=== PATIENT | female | born 1940 | race Caucasian/White ===

== ENCOUNTER 2019-04-12 15:50 | Outpatient (CLI) | payer BC, MEDICARE ==
[2019-04-12 16:16] LABS: BASOPHILS # (AUTO) 0.1 K/uL (0.0-8.0); BASOPHILS % (AUTO) 1.1 % (0.0-2.0); EOSINOPHILS # (AUTO) 0.2 K/uL (0.0-0.7); EOSINOPHILS % (AUTO) 4.1 % (0.0-7.0); HEMATOCRIT 37.2 % (31.2-41.9); HEMOGLOBIN 12.6 g/dL (10.9-14.3); LYMPHOCYTES # (AUTO) 1.3 K/uL (20.0-40.0); LYMPHOCYTES % (AUTO) 21.5 % (20.5-51.5); MEAN CORPUSCULAR HGB CONC 34 g/dL (32.3-35.6); MEAN CORPUSCULAR VOLUME 85.7 fL (75.5-95.3); MONOCYTES # (AUTO) 0.5 K/uL (2.0-10.0); MONOCYTES % (AUTO) 8.6 % (0.0-11.0); NEUTROPHILS # (AUTO) 3.8 K/uL (1.8-8.9); NEUTROPHILS % (AUTO) 64.7 % (38.5-71.5); PLATELET COUNT (AUTO) 209 K/uL (179-408); RED BLOOD CELL COUNT(AUTO) 4.35 MIL/uL (3.63-4.92); WHITE BLOOD COUNT (AUTO) 5.9 K/uL (3.8-11.8)
[2019-04-12 16:22] LABS: CREATININE 0.7 mg/dL (0.6-1.3); POTASSIUM 4.1 mmol/L (3.5-5.1)
[2019-04-12 16:37] LABS: BILIRUBIN,TOTAL 0.4 mg/dL (0.2-1.0); TOTAL PROTEIN, SERUM 7.9 g/dL (6.4-8.2)
== END 2019-04-12 23:59 | disposition home or self-care (01) ==
LOC: LAB 15:50
DX: E87.8 Other disorders of electrolyte and fluid balance, not elsewhere classified (principal)
CPT/HCPCS: 36415; 85025

== ENCOUNTER 2021-04-19 02:03 | Inpatient (IN) | payer BC, MEDICARE ==
[~2021-04-19] VITALS: Ht 152.4 cm; Wt 34.0 kg
--- NOTE | 2021-04-19 02:05 | NUR ---
pt bib ra 86 for c/o abd pain x 2 days.
--- NOTE | 2021-04-19 02:10 | NUR ---
Dr. Lai at bedside for MSE.
[2021-04-19] MEDS ORDERED: POTA10CA43 PO (02:22)
[2021-04-19] MEDS ORDERED: PANT40TA49 PO (02:22)
[2021-04-19] MEDS ORDERED: PRAV40TA3 PO (02:22)
[2021-04-19] MEDS ORDERED: CALC-343 PO (02:22)
[2021-04-19] MEDS ORDERED: FURO20TA4 PO (02:22)
[2021-04-19] MEDS ORDERED: MULT-1045 PO (02:22)
[2021-04-19] MEDS ORDERED: ONDANSETRON 4 MG/2 ML VIAL IV ONE (02:30)
[2021-04-19] MEDS ORDERED: IV NORMAL SALINE 1000 ML BAG IV ONE (02:30)
[2021-04-19] MEDS ORDERED: HYDROMORPHONE 1 MG/1 ML DISP.SYRIN IV ONE (02:30)
[2021-04-19] MEDS ORDERED: ONDANSETRON 4 MG/2 ML VIAL ONE (02:54)
[2021-04-19] MEDS ORDERED: HYDROMORPHONE 1 MG/1 ML DISP.SYRIN ONE (02:55)
[2021-04-19 02:56] LABS: PLATELET COUNT (AUTO) 164 K/uL (179-408)
[2021-04-19 02:59] LABS: CARBON DIOXIDE 24 mmol/L (21-32); CHLORIDE 107 mmol/L (98-107); GLUCOSE 75 mg/dL (74-106); POTASSIUM 3.3 mmol/L (3.5-5.1); UREA NITROGEN, BLOOD 25 mg/dL (7-18)
[2021-04-19 03:06] LABS: HEMATOCRIT 37.6 % (31.2-41.9); MEAN CORPUSCULAR HEMOGLOBIN 29.7 uug (24.7-32.8)
[2021-04-19 03:07] LABS: ALANINE AMINOTRANSFERASE 122 U/L (14-59); ALKALINE PHOSPHATASE 119 U/L (50-136); ASPARTATE AMINOTRANSFERASE 116 U/L (15-37); BILIRUBIN,DIRECT 0.4 mg/dL (0.0-0.2); BILIRUBIN,TOTAL 1.3 mg/dL (0.2-1.0); TOTAL PROTEIN, SERUM 7.4 g/dL (6.4-8.2)
[2021-04-19] MEDS ORDERED: IV 1/2NS 1000 ML 1,000 ML IV ONE (03:15)
[2021-04-19] MEDS ORDERED: IOHEXOL 300MG/ML 100 ML INFUS..BTL ONE (03:33)
[2021-04-19] MEDS ORDERED: SWABABLE VALVE TRANSFER SET EA MC ONE (03:33)
[2021-04-19] MEDS ORDERED: IV NORMAL SALINE 250 ML IV ONE (03:33)
--- NOTE | 2021-04-19 03:33 | NUR ---
pt taken to cat scan.
[2021-04-19] MEDS ORDERED: POTASSIUM CHLORIDE 50 ML IV ONE (03:45)
--- NOTE | 2021-04-19 04:20 | NUR ---
Dr. Lai in the room speaking with the pt.
[2021-04-19 04:48] LABS: LIPASE > 6000 U/L (73-393)
[2021-04-19] MEDS ORDERED: METRONIDAZOLE 500 MG/NS 100 ML PIGGYBACK IV ONE (05:15)
[2021-04-19] MEDS ORDERED: levoFLOXacin 750 MG/D5W 150 ML PIGGYBACK IV ONE (05:15)
[2021-04-19] MEDS ORDERED: levoFLOXacin 750MG/D5W 150 ML IV ONE (05:30)
--- NOTE | 2021-04-19 05:31 | NUR ---
Dr. Lai [facility] CLAIMS EXAMINER from [facility] doctor for admission.
--- NOTE | 2021-04-19 05:34 | NUR ---
pt aware she will be admitted to the hospital, Dr. Lai spoke with pt regarding the admission.
[2021-04-19] MEDS ORDERED: REMEDY ESSENTIAL ZINC PASTE 113 GM TP PRN (05:45)
[2021-04-19] MEDS ORDERED: ACETAMINOPHEN 325 MG TABLET PO PRN (05:45)
[2021-04-19] MEDS ORDERED: ONDANSETRON 4 MG/2 ML VIAL IV PRN (05:45)
[2021-04-19] MEDS ORDERED: MAGNESIUM HYDROXIDE 30 ML LIQUID UDC PO PRN (05:45)
--- NOTE | 2021-04-19 06:55 | NUR ---
Received pt. in bed sleeping intermittently, IV piggy back running. ON NSR with sbp of 113/53 hr of 73. c/of 5/10 abdominal pain, with no need of pain medication as stated by pt. "tolerable for me". Afebrile.
--- NOTE | 2021-04-19 07:04 | NUR ---
Report given to Kim FRANKLIN.
--- NOTE | 2021-04-19 07:15 | NUR ---
Patient with c/of back pain and requesting to have a different bed. pt informed that transfer as inpatient is in progress and that she'll get a more comfortable bed. warm blanket provided and at this time assisted to bathroom as well. Pending urine collected. Will continue with care plan.
--- NOTE | 2021-04-19 07:34 | NUR ---
A call to floor to give report as informed by community health nurse supervisor "nurses are still in the middle of report and they'll call when ready". awaiting call back.
[2021-04-19] MEDS ORDERED: METRONIDAZOLE 500 MG/NS 100ML 100 ML IV ONE (07:39)
[2021-04-19 07:42] LABS: *BILIRUBIN,URIN NEGATIVE (NEGATIVE); *CLARITY,URINE CLEAR (CLEAR); *COLOR,URINE YELLOW (YELLOW); *KETONES,URINE 2+ (NEGATIVE); *UROBILINOGEN,URINE 0.2 E.U./dl (NORMAL); LEUKOCYTE ESTERASE ,URINE NEGATIVE (NEGATIVE); NITRITE, URINE NEGATIVE (NEGATIVE); UGLUCOSE NEGATIVE (NEGATIVE)
[2021-04-19 07:48] LABS: *BLOOD, URINE TRACE (NEGATIVE)
--- NOTE | 2021-04-19 08:30 | NUR ---
A call to supervisor painting department to arrange transfer of pt. to the floor. and I was informed that nurse will call when ready for report as per conveyor line battery charger. will continue to monitor.
--- NOTE | 2021-04-19 08:57 | NUR ---
Telephone report given to Sandra Galarza. All systems covered and questions answered.
--- NOTE | 2021-04-19 09:20 | NUR ---
Pt. taken to room 305 via wheelchair situated in bed, provided with warm blanket as requested. vitals stable. Hr of 66 134/68. Iv line patent.
--- NOTE | 2021-04-19 09:25 | NUR ---
RECEIVED PATIENT FOR ADMISSION 80 YEARS OLD FEMALE FROM EMERGENCY ROOM BY W/CHAIR WITH DX OF PANCREATIS PLACED INTO BED FIXED AND MADE COMFORTABLE.PATIENT IS ALERT AND ORIENTED SOMEWHAT HARD OF HEARING BUT IS ABLE TO ASSIST WITH ADMISSIONS QUESTIONS ORIENTED TO ROOM AND FACILITY PROTOCOL ON ROOM AIR WITH NO SHORTNESS OF BREATH AT THIS TIME DENIES PAIN OR DISCOMFORTS AT THIS TIME CALL LIGHTS AND PERSONAL BELONGINGS ARE WITHIN EASY REACH MADE COMFORTABLE WILL CONTINUE TO OBSERVE.
--- NOTE | 2021-04-19 10:00 | NUR ---
PATIENT IS NPO INSTRUCTED THAT SHE WILL NEED MRCP TO EVALUATE THE STONES PATIENT AWARE AND FILLED OUT THE MRI FORMS AND DOCUMENTED AWAITING FOR THE AMBULANCE BASKET ASSEMBLER.
[2021-04-19] MEDS: IV D5 1/2 NS 1000 ML 1,000 ML IV PRN (10:11)
[2021-04-19] MEDS: PANTOPRAZOLE SODIUM 40 MG VIAL IV SCH (10:31)
[2021-04-19 11:34] VITALS: BP 102/51
[2021-04-19 11:51] LABS: BACTERIA,URINE NONE SEEN /HPF (NONE SEEN); RBC,URINE 0-3 /HPF (0-3); SQUAMOUS EPITHELIAL CELL,UR FEW /HPF (NONE SEEN); WBC,URINE 0-3 /HPF (0-3)
[2021-04-19] MEDS ORDERED: FLUT1BLS6 IH (12:38)
[2021-04-19] MEDS ORDERED: GABA300C PO (12:38)
[2021-04-19] MEDS ORDERED: CHLO473M3 MM (12:38)
[2021-04-19] MEDS ORDERED: ALBU8.5H8 IH (12:38)
--- NOTE | 2021-04-19 12:38 | NUR ---
PATIENT PICKED UP BY [facility] TO [place] FOR MRCP ORDERED
[2021-04-19] MEDS: METRONIDAZOLE 500 MG/NS 100ML 500 MG in PREMIXED 1 EACH IV SCH ×2 (14:06→21:09)
[2021-04-19] MEDS: MORPHINE SULFATE 2 MG/1 ML DISP.SYRIN IV PRN ×2 (14:27→22:28)
[2021-04-19] MEDS ORDERED: POTASSIUM CHLORIDE 50 ML IV SCH (16:00)
--- NOTE | 2021-04-19 16:00 | NUR ---
CALLED DR CORDERO AND RELAYED THE RESULTS OF THE MRCP ORDERED AND HE STATED OKAY WILL CALL DR LEE.
[2021-04-19 16:16] VITALS: BP 114/57
--- NOTE | 2021-04-19 16:26 | NUR ---
CALL RECEIVED FROM DR LEE WITH ORDER TP START CLEAR LIQUIDS AND NOTED PATIENT AWARE
--- NOTE | 2021-04-19 18:00 | NUR ---
UP AMBULATING IN THE HALLWAY WITH HAND HELD ASSIST WITH STEADY GAIT JAI CLEAR LIQUIDS ORDERED.
--- NOTE | 2021-04-19 18:36 | NUR ---
DR LEE STATED THAT ITS DR HERNADEZ THAT WILL DECIDE ON NEXT PLAN OF ACTION AND THAT HE HAS NOTIFIED DR CORDERO.
[2021-04-19 20:00] VITALS: BP 119/81
[2021-04-20] MEDS: MORPHINE SULFATE 2 MG/1 ML DISP.SYRIN IV PRN (02:30)
[2021-04-20 04:00] VITALS: BP 115/54
[2021-04-20] MEDS: METRONIDAZOLE 500 MG/NS 100ML 500 MG in PREMIXED 1 EACH IV SCH (05:28)
[2021-04-20] MEDS: IV D5 1/2 NS 1000 ML 1,000 ML IV PRN (05:35)
[2021-04-20] MEDS ORDERED: levoFLOXacin 500 MG/D5W 500 MG in PREMIXED 1 EACH IV SCH (06:00)
[2021-04-20] MEDS ORDERED: levoFLOXacin 250MG /D5W 50 ML IV SCH (06:00)
[2021-04-20 06:37] LABS: HEMATOCRIT 28.4 % (31.2-41.9); MEAN CORPUSCULAR HEMOGLOBIN 29.5 uug (24.7-32.8); MEAN CORPUSCULAR VOLUME 87.3 fL (75.5-95.3); PLATELET COUNT (AUTO) 119 K/uL (179-408)
[2021-04-20 07:06] LABS: CREATININE 0.8 mg/dL (0.6-1.3); MAGNESIUM 2.1 mg/dL (1.8-2.4); POTASSIUM 3.3 mmol/L (3.5-5.1)
[2021-04-20 08:11] LABS: THYROID STIMULATING HORMONE 2.318 mIU/mL (0.358-3.740)
[2021-04-20] MEDS: PANTOPRAZOLE SODIUM 40 MG VIAL IV SCH (08:39)
[2021-04-20] MEDS ORDERED: PIPERACILLIN SODIUM/TAZOBACTAM 3.375 G in IV DEXTROSE 5% 50 ML IV SCH (08:45)
[2021-04-20] MEDS ORDERED: POTASSIUM PHOSPHATE MM 15 MMOL in IV NORMAL SALINE 250 ML IV ONE (08:45)
[2021-04-20 08:55] LABS: BILIRUBIN,DIRECT 0.2 mg/dL (0.0-0.2); BILIRUBIN,TOTAL 0.5 mg/dL (0.2-1.0); TOTAL PROTEIN, SERUM 5.9 g/dL (6.4-8.2)
[2021-04-20] MEDS: PIPERACILLIN SODIUM/TAZOBACTAM 3.375 G in IV DEXTROSE 5% 100 ML IV SCH ×3 (09:30→21:12)
--- NOTE | 2021-04-20 10:21 | NUR ---
POOR VEINOUS ACCESS MULTIPLE ATTEMPTS ON MULTIPLE ATB MD NOTIFIED WITH ORDER TO INSERT MID LINE INSERTED TO HER RIGHT UPPER ARM GAUGE 18 JAI WELL
[2021-04-20 11:30] VITALS: BP 119/51
--- NOTE | 2021-04-20 15:20 | NUR ---
CALL RECEIVED FROM DR GIBBS STATED THAT PER DR HERNADEZ PATIENT WILL HAVE SURHERY TOMORROW LAP CHOLY POSSIBLE OPEN TO KEEP NPO AFTER MIDNIGHT.
[2021-04-20 15:39] VITALS: BP 114/51
--- NOTE | 2021-04-20 17:30 | NUR ---
DR BRITT HERE TO SEE PATIENT AND HE TRIED TO EXPLAIN TO THE PATIENT THE SURGERY FOR TOMORROW AND SHE GOT ANGRY AND STATED THAT SHE MUST SEE DR HERNADEZ RIGHT AWAY STILL REFUSING TO SIGN THE CONSCENT
--- NOTE | 2021-04-20 18:36 | NUR ---
PATIENT SEEN AND EXAMINED BY DANIKA WITH NEW ORDERS AND NOTED
--- NOTE | 2021-04-20 19:00 | NUR ---
Received patient on bed, alert and oriented x 3-4, no shortness of breath. no complaint of pain. Refused to sign the consent for laparoscopic cholecystectomy possible open, she wants to speak with the doctor before signing the planned procedure. She agreed to be NPO at 12midnight.
[2021-04-20] MEDS: ONDANSETRON 4 MG/2 ML VIAL IV PRN (21:15)
--- NOTE | 2021-04-21 | NUR ---
Instructed patient on NPO.
--- NOTE | 2021-04-21 01:15 | NUR ---
patient complaint of localized itchiness and redness at right upper arm, Dr.Daniel Marie made aware with new order Benadryl 25mg IVP, given. Will monitor.
[2021-04-21] MEDS: diphenhydrAMINE 50 MG/1 ML VIAL IV PRN (01:36)
[2021-04-21] MEDS: PIPERACILLIN SODIUM/TAZOBACTAM 3.375 G in IV DEXTROSE 5% 100 ML IV SCH (05:18)
[2021-04-21 06:11] LABS: ABG BASE EXCESS -6.5 mmol/L; ABG HCO3 16.3 mmol/L; ABG PCO2 24.8 mmHg (35.0-45.0); ABG PH 7.436 (7.350-7.450); ABG PO2 80.8 mmHg (75.0-100.0); ABG SITE RIGHT RADIAL; ABG TOTAL HEMOGLOBIN 10.6 G/dL (12.0-16.0); COHb 0.3 % (0.5-1.5); MetHb 0.2 % (0.0-1.5); O2Hb 95.7 % (94.0-97.0); VENT MODE ROOM AIR
--- NOTE | 2021-04-21 06:19 | NUR ---
Patient slept well althroughout the night. No complaint of pain. Still with ongoing ATB Zosyn IVP infusing well at 25cc/hr. Patient on bed in fair condition.
[2021-04-21 06:45] LABS: HEMATOCRIT 27.3 % (31.2-41.9); MEAN CORPUSCULAR HEMOGLOBIN 29.6 uug (24.7-32.8); MEAN CORPUSCULAR VOLUME 86.3 fL (75.5-95.3); PLATELET COUNT (AUTO) 109 K/uL (179-408)
[2021-04-21 07:03] LABS: BILIRUBIN,TOTAL 0.5 mg/dL (0.2-1.0); CREATININE 0.8 mg/dL (0.6-1.3); MAGNESIUM 2.1 mg/dL (1.8-2.4); PHOSPHOROUS 2.2 mg/dL (2.5-4.9); POTASSIUM 3.2 mmol/L (3.5-5.1); TOTAL PROTEIN, SERUM 5.6 g/dL (6.4-8.2)
--- NOTE | 2021-04-21 07:52 | NUR ---
DURING ROUNDS RECEIVED PLEASANT LADY IN BED AWAKE AND VERBALLY RESPONSIVE. DENIES SOB OR PAIN. STATED THAT MANAGER SHAREPOINT WAS JUST THERE TO DRAW BLOOD AND NOTED WITH RFA ECCHYMOSIS WITH A BAND AID ON. OFFERED ICE PACK BUT SHE DOESN'T WANT ANYTHING ELSE ON IT. DENIES PAIN. IV FLUIDS RUNNING ORDERED TOLERATED. NO OTHER COMPLAINTS AT THIS TIME. SAFETY MAINTAINED. CALL LIGHT IN REACH.
--- NOTE | 2021-04-21 07:59 | NUR ---
REJI FROM OT CALLED AND STATED THEY WILL PATTERN ATTENDANT PT AT 1PM FOR SURGERY. INFORMED HER THAT PT WANTS TO TALK TO SURGEON BEFORE CONSENTING. PER REJI, DR HERNADEZ WILL COME UP SHORTLY.
[2021-04-21] MEDS: PANTOPRAZOLE SODIUM 40 MG VIAL IV SCH (08:52)
[2021-04-21] MEDS: POTASSIUM CHLORIDE 50 ML IV SCH ×4 (10:20→21:25)
--- NOTE | 2021-04-21 10:44 | NUR ---
PT STATES SHE TAKES DORZOLAMIDE/TIMOLOL AT HOME. INFORMED [employer] COMMUNITY MANAGER WITH NEW ORDER.
[2021-04-21 11:23] VITALS: BP 138/52
--- NOTE | 2021-04-21 11:42 | NUR ---
NOTED WITH NEW SKIN ISSUES. MAURICE FROM WOUND CARE HERE AND CONSULTED AGREED WITH TX PLAN.
--- NOTE | 2021-04-21 13:32 | NUR ---
PICKED UP BY 2 RN FOR SURGERY. NO ACUTE DISTRESS. Addendum: 04/21/21 at 1928 by OCTAVIANO BUCKNER RN ENDORSED TO OR NURSES IV MEDICATIONS. PER PHARMACY TO LET THEM KNOW WHEN PATIENT COMES BACK SO SHE CAN CHANGE THE TIMING OF THE MEDICATIONS.
[2021-04-21] MEDS: METRONIDAZOLE 500 MG/NS 100ML 500 MG in PREMIXED 1 EACH IV SCH ×2 (14:00→22:01)
[2021-04-21] MEDS ORDERED: MIDAZOLAM HCL 2 MG/2 ML VIAL ONE (14:15)
[2021-04-21] MEDS ORDERED: FENTANYL CITRATE 250 MCG/5 ML AMPUL ONE (14:15)
[2021-04-21] MEDS ORDERED: CLINDAMYCIN PHOSPHATE 600 MG/4 ML VIAL ONE (14:16)
[2021-04-21] MEDS ORDERED: ROCURONIUM BROMIDE 50 MG/5 ML VIAL ONE (14:16)
[2021-04-21] MEDS ORDERED: GLYCOPYRROLATE 0.2 MG/ML VIAL IJ ONE (16:12)
[2021-04-21] MEDS ORDERED: NEOSTIGMINE METHYLSULFATE 10 MG/10 ML VIAL IM ONE (16:12)
[2021-04-21] MEDS ORDERED: ONDANSETRON 4 MG/2 ML VIAL IV ONE (16:12)
[2021-04-21] MEDS ORDERED: LIDOCAINE-MPF 2% 5 ML VIAL IJ ONE (16:12)
[2021-04-21] MEDS ORDERED: PROPOFOL 200 MG/20 ML BOTTLE IV ONE (16:12)
[2021-04-21] MEDS ORDERED: SEVOFLURANE 250 ML BOTTLE IH ONE (16:12)
[2021-04-21] MEDS ORDERED: DEXAMETHASONE SOD PHOSPHATE 4 MG INJ IV ONE (16:12)
[2021-04-21] MEDS ORDERED: METOCLOPRAMIDE HCL 10 MG/2 ML VIAL IV ONE (16:12)
[2021-04-21] MEDS ORDERED: ONDANSETRON 4 MG/2 ML VIAL ONE (16:58)
[2021-04-21] MEDS ORDERED: HYDROMORPHONE 1 MG/1 ML DISP.SYRIN ONE (16:59)
[2021-04-21] MEDS ORDERED: SODIUM PHOSPHATE MM 15 MMOL in IV NORMAL SALINE 250 ML IV ONE (17:00)
--- NOTE | 2021-04-21 18:45 | NUR ---
RECEIVED CALL FROM PACU NURSE THAT PATIENT WILL BE ROSAURA STATUS WHEN SHE COMES BACK
--- NOTE | 2021-04-21 20:15 | NUR ---
Report received from TOLL SETTLEMENT CLERK. Patient S/P Lap Kymberly, AA, c/o post op pain. R abdominal post op site with Mepilex dressings and DEENA drain in place. O2 3L NC, respirations regular non labored. Attached to Tele monitor: SR, no dysrhythmias. Assessment completed.
[2021-04-21] MEDS: levoFLOXacin 500 MG/D5W 500 MG in PREMIXED 1 EACH IV SCH (20:23)
--- NOTE | 2021-04-21 20:45 | NUR ---
Spoke to Pharmacist re: delayed IV medications such as Kcl, Levaquin, Flagyl and NaPhos.
[2021-04-21 20:48] VITALS: BP 154/67
[2021-04-21] MEDS: DORZOLAMIDE/TIMOLOL OPHT DROP 10 ML BOTTLE EACHEYE SCH (20:49)
[2021-04-21 21:04] VITALS: BP 149/58
[2021-04-21] MEDS: MORPHINE SULFATE 2 MG/1 ML DISP.SYRIN IV PRN (21:05)
--- NOTE | 2021-04-21 21:05 | NUR ---
Medicated with Morphine IV for pain.
--- NOTE | 2021-04-21 22:00 | NUR ---
Emptied 80 ml of serosanguineous fluids from DEENA drain. Will monitor closely.
--- NOTE | 2021-04-21 23:15 | NUR ---
Patient attempted to use the bedpan to urinate; unable to. C/o post pain. [place] 1 tab given. Patient taking sips of water without swallowing difficulty.
[2021-04-21] MEDS: HYDROCODONE/APAP 5-325MG TABLET PO PRN (23:16)
[2021-04-21] MEDS: IV D5 1/2 NS 1000 ML 1,000 ML IV PRN (23:21)
[2021-04-22] VITALS (9 sets, daily range): BP systolic 123–167; BP diastolic 45–66
--- NOTE | 2021-04-22 | NUR ---
Voided 100 ml of clear yellow urine/bedpan. Turned and repositioned.
[2021-04-22] MEDS: MORPHINE SULFATE 2 MG/1 ML DISP.SYRIN IV PRN ×5 (01:07→21:39)
--- NOTE | 2021-04-22 01:07 | NUR ---
Patient awake, c/o post op pain. Morphine 1 mg IV given. Abdominal dressing moderately stained with serosanguineous drainage. Will continue to monitor.
--- NOTE | 2021-04-22 02:00 | NUR ---
Sleeping after Morphine IV. VS stable.
--- NOTE | 2021-04-22 03:20 | NUR ---
Patient awake, c/o itchiness to arms and chest. Skin care provided. Medicated with Benadryl IV. Up on the bedpan; voided 75 ml of clear yellow urine.
[2021-04-22] MEDS: diphenhydrAMINE 50 MG/1 ML VIAL IV PRN (03:22)
--- NOTE | 2021-04-22 03:30 | NUR ---
Am care rendered. Abdominal dressing reinforced. DEENA emptied; with 80 ml of bloody and bile colored fluids.
--- NOTE | 2021-04-22 04:30 | NUR ---
Patient very compliant with the use of Incentive Spirometry when awake.
[2021-04-22] MEDS: METRONIDAZOLE 500 MG/NS 100ML 500 MG in PREMIXED 1 EACH IV SCH ×3 (05:18→21:00)
[2021-04-22 06:12] LABS: HEMATOCRIT 31.2 % (31.2-41.9); MEAN CORPUSCULAR HEMOGLOBIN 28.9 uug (24.7-32.8); MEAN CORPUSCULAR VOLUME 88.7 fL (75.5-95.3); PLATELET COUNT (AUTO) 159 K/uL (179-408)
[2021-04-22 06:39] LABS: BILIRUBIN,TOTAL 0.4 mg/dL (0.2-1.0); CREATININE 0.7 mg/dL (0.6-1.3); TOTAL PROTEIN, SERUM 6.1 g/dL (6.4-8.2)
--- NOTE | 2021-04-22 06:45 | NUR ---
VS stable during the shift. Requiring Morphine IV Q4H for post op pain. Dressing moderately soaked with serosanguineous drainage. O2 sats above 94% on room air.
--- NOTE | 2021-04-22 07:45 | NUR ---
Received patient report from PM nurse. Arrived to patient resting comfortably in bed with no signs of distress or discomfort. Patient has DEENA drainage with a recent of 30cc output at PM shift at 0700. IV site intact and patent currently receiving D5 1/2 NS at 50cc/hr. Patient not exhibiting pain. Bed left in lowest position with call light within reach.
[2021-04-22] MEDS: PANTOPRAZOLE SODIUM 40 MG VIAL IV SCH (08:01)
[2021-04-22] MEDS: DORZOLAMIDE/TIMOLOL OPHT DROP 10 ML BOTTLE EACHEYE SCH ×2 (08:01→20:56)
--- NOTE | 2021-04-22 10:33 | NUR ---
WE RECEIVED AN ORDER FROM Tony ARELLANO 3RD FLOOR FOR NUCLEAR MEDICINE STUDY FOR HIDA GB VASC FLOW FOR THIS PATIENT. THE N/M TECH WAS CALLED AND LEFT HIM A MESSAGE TO LET HIM OF THIS STUDY
[2021-04-22] MEDS: levoFLOXacin 500 MG/D5W 500 MG in PREMIXED 1 EACH IV SCH (12:06)
--- NOTE | 2021-04-22 13:25 | NUR ---
WOUND CARE CONSULT: PT PRESENTS VERY THIN AND BONY WITH SKIN TEAR TO LEFT ARM AND ABDOMINAL INCISION WITH SENAIT, DEENA DRAIN AND SOME LEAKAGE OF SEROSANGUINOUS DRAINAGE AROUND TUBE INSERTION SITE. RN TO DISCUSS WITH SURGEON. SOILED DRESSING WAS CHANGED USING GAUZE AND ABD PAD. RECOMMENDATIONS MADE FOR SKIN PROTECTION. DISCUSSED WITH NURSING STAFF. PT IS CONTINENT. MD IN AGREEMENT WITH PLAN OF CARE.
--- NOTE | 2021-04-22 13:30 | NUR ---
Output of 45 cc from DEENA drainage.
--- NOTE | 2021-04-22 13:32 | NUR ---
Patient received PT well today. Patient was able to walk around unit with stand by assistance. Will endorse information to PM nurse
--- NOTE | 2021-04-22 15:24 | NUR ---
Per agriscience technology instructorJorge L, the dye or contrast will be delivered tomorrow around 3/4PM due to shortage. Therefore, HIDA scan will be conducted around that time. Jorge L instructed for patient to have breakfast tomorrow and be transitioned to NPO after breakfast. I mentioned patient had cholecystectomy done yesterday and he mentioned that it is ok for patient to receive morphine and will have no effect on HIDA scan.
--- NOTE | 2021-04-22 17:31 | NUR ---
Dressing changed with 4x4 gauze and ABD pad.
[2021-04-22] MEDS ORDERED: diphenhydrAMINE 1% CREAM 28.3 GM TUBE TP PRN (18:30)
--- NOTE | 2021-04-22 18:38 | NUR ---
Patient received care well today. Patient in no apparent distress or discomfort. Total drainage of DEENA during shift accumulated to 80cc. Patient scheduled to have HIDA scan tomorrow. Dr. Covington to visit patient in the morning to explain procedure and have consent signed. IV site intact and patent currently receiving 50cc/hr of D5 1/2 NS. Bed left in lowest position with call light within reach. Will endorse information to PM nurse
--- NOTE | 2021-04-22 19:00 | NUR ---
Received report. Patient is awake, alert, A/Ox4, able to make needs known with assistance. Ambulated to bathroom with assistance. Denies pain at this time. VSS. RA. NAD. LFA 22G SL and CHRIS ML with ongoing D5 1/2NS @50mls/hr. Surgical incision site dressing c/d/i, dressing changed PRN with DEENA drain. Placed.Step1 KCl mattress on bed. Bed at lowest position, siderails x2. Call light within reach. Will continue to monitor.
[2021-04-22] MEDS: CETIRIZINE HCL 10 MG TABLET PO SCH ×2 (20:56→21:00)
--- NOTE | 2021-04-22 21:30 | NUR ---
Patient c/o pain at surgical incision site. Morphine IV given as ordered. Will continue to monitor.
[2021-04-23] VITALS: BP 100/73
[2021-04-23] MEDS: diphenhydrAMINE 50 MG/1 ML VIAL IV PRN (01:15)
[2021-04-23] MEDS: METRONIDAZOLE 500 MG/NS 100ML 500 MG in PREMIXED 1 EACH IV SCH ×3 (06:07→21:24)
[2021-04-23] MEDS: PANTOPRAZOLE SODIUM 40 MG TABLET.DR PO SCH (06:07)
[2021-04-23 06:32] LABS: HEMATOCRIT 31.7 % (31.2-41.9); MEAN CORPUSCULAR HEMOGLOBIN 29.4 uug (24.7-32.8); PLATELET COUNT (AUTO) 193 K/uL (179-408)
[2021-04-23] MEDS: ONDANSETRON 4 MG/2 ML VIAL IV PRN (06:39)
[2021-04-23 07:02] LABS: BILIRUBIN,DIRECT 0.1 mg/dL (0.0-0.2); BILIRUBIN,TOTAL 0.5 mg/dL (0.2-1.0); CREATININE 0.7 mg/dL (0.6-1.3); POTASSIUM 3.3 mmol/L (3.5-5.1); TOTAL PROTEIN, SERUM 6.4 g/dL (6.4-8.2)
[2021-04-23] MEDS ORDERED: POTASSIUM CHLORIDE 20 MEQ TAB.PRT.SR PO ONE (07:45)
[2021-04-23] MEDS: MORPHINE SULFATE 2 MG/1 ML DISP.SYRIN IV PRN ×2 (08:25→22:11)
[2021-04-23] MEDS: DORZOLAMIDE/TIMOLOL OPHT DROP 10 ML BOTTLE EACHEYE SCH ×2 (08:26→21:12)
[2021-04-23] MEDS ORDERED: ONDANSETRON 4 MG/2 ML VIAL IV ONE (09:30)
[2021-04-23 11:23] VITALS: BP 137/58
[2021-04-23] MEDS: levoFLOXacin 500 MG/D5W 500 MG in PREMIXED 1 EACH IV SCH (11:29)
[2021-04-23 16:02] VITALS: BP 118/54
--- NOTE | 2021-04-23 16:15 | NUR ---
patient accidently pulled floridalma drain out, Dr. Covington and Tello Villagran made aware. NNO at this time. informed Dr. Covington that patient is scheduled for hidascan. patient at this time with v/s wnl, no complaints at this time. moderate drainage noted to dressing.
[2021-04-23] MEDS: CETIRIZINE HCL 10 MG TABLET PO SCH (21:12)
--- NOTE | 2021-04-24 04:17 | NUR ---
AAOx4 Needs attended. Went for HIDA scan. No acute distress noted. VSS. Admitted for acute pancreatitis. Morphine given as noted with relief obtained. Left upper arm midline flushed and patent.IVF's infusing well with also IV ABT given as scheduled. Will monitor patient.
[2021-04-24 04:52] VITALS: BP 152/55
[2021-04-24] MEDS: METRONIDAZOLE 500 MG/NS 100ML 500 MG in PREMIXED 1 EACH IV SCH ×3 (05:14→21:32)
[2021-04-24 05:51] LABS: HEMATOCRIT 28.4 % (31.2-41.9); MEAN CORPUSCULAR HEMOGLOBIN 28.9 uug (24.7-32.8); MEAN CORPUSCULAR VOLUME 86.6 fL (75.5-95.3); PLATELET COUNT (AUTO) 176 K/uL (179-408)
[2021-04-24 06:00] LABS: ALANINE AMINOTRANSFERASE 45 U/L (14-59); ALKALINE PHOSPHATASE 63 U/L (50-136); ASPARTATE AMINOTRANSFERASE 36 U/L (15-37); BILIRUBIN,TOTAL 0.3 mg/dL (0.2-1.0); CARBON DIOXIDE 18 mmol/L (21-32); CHLORIDE 112 mmol/L (98-107); CREATININE 0.5 mg/dL (0.6-1.3); GLUCOSE 126 mg/dL (74-106); POTASSIUM 3.2 mmol/L (3.5-5.1); TOTAL PROTEIN, SERUM 5.4 g/dL (6.4-8.2); UREA NITROGEN, BLOOD 12 mg/dL (7-18)
[2021-04-24] MEDS: PANTOPRAZOLE SODIUM 40 MG TABLET.DR PO SCH (06:06)
[2021-04-24 08:00] VITALS: BP 156/53
[2021-04-24] MEDS: DORZOLAMIDE/TIMOLOL OPHT DROP 10 ML BOTTLE EACHEYE SCH ×2 (08:22→21:09)
[2021-04-24] MEDS: MORPHINE SULFATE 2 MG/1 ML DISP.SYRIN IV PRN ×3 (08:26→21:41)
--- NOTE | 2021-04-24 10:00 | NUR ---
DR HERNADEZ AT BEDSIDE INFORMED PATIENT THAT PLAN OF CARE IS FOR ERCP AND GI WILL PLAN FOR THE PROCEDURE. HE WILL ALSO PLACE PATIENT ON REGLAN. NOTED SOME ABDOMINAL DISTENTION AND NO BM YET. KUB WILL BE ORDERED FOR TODAY.
[2021-04-24] MEDS: POTASSIUM CHLORIDE 50 ML IV SCH ×4 (10:14→14:44)
--- NOTE | 2021-04-24 10:40 | NUR ---
CHARGE NURSE CLAY INFORMED THAT DERIC TRACE EVIDENCE TECHNICIAN WILL PLACE PATIENT NPO AT THIS POINT
--- NOTE | 2021-04-24 10:48 | NUR ---
report given to Kim FRANKLIN she will be taking over care the remainder of the shift.
--- NOTE | 2021-04-24 10:49 | NUR ---
Received pt. sitting on chair. AAOX4. vitals stable no c/of pain, on RA. At this time no c/of pain but pt. insisting on walking on her own. Pt. educated on fall risk precautions and agreed to follow commands at this time.
[2021-04-24 11:21] VITALS: BP 155/61
--- NOTE | 2021-04-24 11:54 | NUR ---
A call from Dr. Covington and orders to consent pt. for CT guided tra to right quadrant abdominal fluid collection order received. As stated by Dr. Covington to call daughter for consent He's discussing care plan with her.
--- NOTE | 2021-04-24 12:19 | NUR ---
A call to Ms. Miguel Olivier to obtain consent for procedure . and at this time she stated that Dr. Covington has not discussed care plan with her yet. She was instructed to call back the unit when informs her of care plan for CT guided drainage. of abdomen. Addendum: 04/24/21 at 1542 by JAIME ZABALA RN Correct pt's daughter is Dr. Irene Colbert and her contact number is . a call given to her to obtain consent for procedure, message left.
--- NOTE | 2021-04-24 12:30 | NUR ---
A call to attending JULIEN Liao and He was informed of the call received from Ms. Duque results communicator, with reports of 2 impressions. 1. Impression positive biliary scan small mild bile leak is seen accumulating along the inferior aspect of peritoneal cavity. 2 Impression patent common bile duct with normal visualization of small bowel. As stated He was made aware as well.
[2021-04-24] MEDS: LEVOFLOXACIN/D5W 250 MG in PREMIX 1 EA IV SCH (12:36)
--- NOTE | 2021-04-24 15:46 | NUR ---
A call to Radiology department to inquire timing of CT guided drainage to right upper abdomen fluid collection. I was informed by [employer] that procedure is not done on weekend and to inform that He will informed radiologist and follow up Monday.
--- NOTE | 2021-04-24 16:11 | NUR ---
A call to radiologist Ranjeet and He was informed of Dr. Cleveland's request to have procedure done tomorrow 04/25/2021. as stated by Him I'll do my best in having some one to do procedure tomorrow. informed, And Dr. Covington also informed still awaiting from pt's daughter Ms. Irene Colbert to consent procedure.
[2021-04-24 16:22] VITALS: BP 157/57
--- NOTE | 2021-04-24 19:10 | NUR ---
Received report from am shift, spoke to Momail Ranjeet. Aware of order of CT Scan. Will endorse to am shift.
--- NOTE | 2021-04-24 19:13 | NUR ---
Received pt sitting up on chair. AOX4. On room air. No signs of acute distress noted. CHRIS midline intact and running D5 1/2 NS. Assisted pt to bathroom with walker, tolerated. Belongings and call lights within reach. Safety measures implemented.
[2021-04-24 20:36] VITALS: BP 153/55
[2021-04-24] MEDS: CETIRIZINE HCL 10 MG TABLET PO SCH (21:00)
[2021-04-24] MEDS: PANTOPRAZOLE SODIUM 40 MG VIAL IV SCH (21:08)
--- NOTE | 2021-04-24 22:35 | NUR ---
Pt refuses D5 1/2 NS IV hydration at 50 mls/hr running overnight. Pt is concerned about fluid overload. Explained to pt the importance of IV hydration being on NPO status and fluid rate. Pt verbalizes understanding, continued to refuse IV hydration. No signs of acute distress.
[2021-04-25 04:50] VITALS: BP 152/56
[2021-04-25] MEDS: METRONIDAZOLE 500 MG/NS 100ML 500 MG in PREMIXED 1 EACH IV SCH ×3 (05:17→21:29)
[2021-04-25 06:27] LABS: HEMATOCRIT 27.6 % (31.2-41.9); MEAN CORPUSCULAR VOLUME 87.2 fL (75.5-95.3); PLATELET COUNT (AUTO) 218 K/uL (179-408)
[2021-04-25 06:31] LABS: BILIRUBIN,TOTAL 0.4 mg/dL (0.2-1.0); CREATININE 0.6 mg/dL (0.6-1.3); MAGNESIUM 1.8 mg/dL (1.8-2.4); PHOSPHOROUS 2.4 mg/dL (2.5-4.9); POTASSIUM 3.3 mmol/L (3.5-5.1); TOTAL PROTEIN, SERUM 5.4 g/dL (6.4-8.2)
[2021-04-25] MEDS: MORPHINE SULFATE 2 MG/1 ML DISP.SYRIN IV PRN ×3 (07:01→23:03)
--- NOTE | 2021-04-25 07:40 | NUR ---
Pt wants to contact her show card writer, DR. Lorraine MORALES [phone]. CADENCE Villagran aware and ordered show card writer consult within facility.
--- NOTE | 2021-04-25 08:00 | NUR ---
Bowel sounds hypoactive. Noted shawn on right lower quadrant. Abd distended. Discussed plan of care with pt re: importance of ambulation, use IS WA x 10 every hour, npo status, and fall precaution. PT agreeable with plan of care. Mid line on left upper arm intact. Edema NAJMA LE +2 dependent edema. Legs elevated. noted left arm wound. Call light is within reach. Pt is in no acute distress.
[2021-04-25] MEDS: DORZOLAMIDE/TIMOLOL OPHT DROP 10 ML BOTTLE EACHEYE SCH ×2 (08:57→21:24)
[2021-04-25] MEDS: PANTOPRAZOLE SODIUM 40 MG VIAL IV SCH ×2 (08:59→21:24)
[2021-04-25] MEDS ORDERED: POTASSIUM PHOSPHATE MM 15 MMOL in IV NORMAL SALINE 250 ML IV ONE (10:30)
--- NOTE | 2021-04-25 10:30 | NUR ---
F/u call made to Radiology Department re: procedure ct guided RQ abd fluid collection. As assessed nothing was set up for today's procedure NO IR DR was called in to come for todays procedure. Called nursing treating and pumping supervisor and able to get a nurse to come for the procedure pending time if Kevin handling tech can get a IR DR to come in. Notified Kevin that procedure is a STAT. Will coordinate as able.
[2021-04-25 11:16] VITALS: BP 145/76
--- NOTE | 2021-04-25 12:03 | NUR ---
Spoke with DR Covington Notified that per DR NDIAYE [phone] upon reviews of the images that there is no need to drain. Ok to cancel procedure per génesis and monitor patient.
[2021-04-25] MEDS: LEVOFLOXACIN/D5W 250 MG in PREMIX 1 EA IV SCH (12:46)
[2021-04-25 16:00] VITALS: BP 160/44
--- NOTE | 2021-04-25 16:58 | NUR ---
PT ambulated around hallway x 10 from am. Pt walks with with steady gait and SBA.
[2021-04-25] MEDS ORDERED: NEUTRA PHOS PACKET PO ONE (18:00)
--- NOTE | 2021-04-25 18:26 | NUR ---
Awaiting call back from DR Hines confirming re: ERCP procedure place on his notes but not specific order to get consent for tomorrow.
[2021-04-25 20:03] VITALS: BP 163/57
--- NOTE | 2021-04-25 20:25 | NUR ---
Per Dr. Murphy, Dr. Griffiths will be covering pt. Continue to keep pt on NPO and complete consent form, while waiting for plan of care for 04/26 am.
[2021-04-25] MEDS: CETIRIZINE HCL 10 MG TABLET PO SCH (21:00)
[2021-04-26] MEDS: IV D5 1/2 NS 1000 ML 1,000 ML IV PRN (01:34)
[2021-04-26 04:03] VITALS: BP 150/54
[2021-04-26] MEDS: METRONIDAZOLE 500 MG/NS 100ML 500 MG in PREMIXED 1 EACH IV SCH ×3 (05:14→21:33)
[2021-04-26] MEDS: MORPHINE SULFATE 2 MG/1 ML DISP.SYRIN IV PRN ×3 (05:40→21:33)
[2021-04-26 06:45] LABS: HEMATOCRIT 28.3 % (31.2-41.9); MEAN CORPUSCULAR HEMOGLOBIN 28.9 uug (24.7-32.8); MEAN CORPUSCULAR VOLUME 85.5 fL (75.5-95.3); PLATELET COUNT (AUTO) 308 K/uL (179-408)
--- NOTE | 2021-04-26 06:53 | NUR ---
Patient slept intermittently through the night. On air mattress. On room air saturating at 97%. Abd distended, soft and tender to touch. Morphine 1mg given for abdominal pain. CHRIS midline intact, running D5 1/2 NS at 50 mls/hr. Change wound dressing on RLQ. No signs of redness on shawn or discharges. Pt awaiting to speak to MD before signing consent for planned ERCP. Call lights within reach. Safety measures maintained.
[2021-04-26 07:48] LABS: BILIRUBIN,DIRECT 0.1 mg/dL (0.0-0.2); BILIRUBIN,TOTAL 0.5 mg/dL (0.2-1.0); CREATININE 0.6 mg/dL (0.6-1.3); MAGNESIUM 1.9 mg/dL (1.8-2.4); PHOSPHOROUS 3.1 mg/dL (2.5-4.9); TOTAL PROTEIN, SERUM 5.5 g/dL (6.4-8.2)
[2021-04-26 08:39] LABS: POTASSIUM 2.8 mmol/L (3.5-5.1)
[2021-04-26] MEDS ORDERED: POTASSIUM CHLORIDE 10 MEQ, LIDOCAINE 1% 1 ML in IV DEXTROSE 5% 100 ML IV ONE (09:00)
[2021-04-26] MEDS: PANTOPRAZOLE SODIUM 40 MG VIAL IV SCH ×2 (09:09→21:32)
[2021-04-26] MEDS: DORZOLAMIDE/TIMOLOL OPHT DROP 10 ML BOTTLE EACHEYE SCH ×2 (09:09→21:17)
[2021-04-26] MEDS: POTASSIUM CHLORIDE 10 MEQ, LIDOCAINE 1% 1 ML in IV DEXTROSE 5% 100 ML IV SCH ×6 (09:31→15:49)
--- NOTE | 2021-04-26 10:45 | NUR ---
patient is awake and sitting in w/c at this time. patient ambulated with PT with fww, gait appears stable, patient tolerated ambulating well.
--- NOTE | 2021-04-26 10:53 | NUR ---
per Dr. Hines patient to go for ERCP at 1800.
[2021-04-26] MEDS: LEVOFLOXACIN/D5W 250 MG in PREMIX 1 EA IV SCH (11:45)
[2021-04-26 12:00] VITALS: BP 145/46
--- NOTE | 2021-04-26 12:08 | NUR ---
patient requesting ice chips, reminded patient that she is npo and icechips are not allowed, per patient ask the doctor, confirmed with PMD who replied no ice chips. Patient informed.
[2021-04-26 15:41] VITALS: BP 152/58
[2021-04-26] MEDS ORDERED: INDOMETHACIN 50 MG SUPP.RECT RC ONE (17:11)
[2021-04-26] MEDS ORDERED: IOHEXOL 300MG/ML 50 ML VIAL ONE (17:11)
[2021-04-26] MEDS ORDERED: IOHEXOL-240 MG , 50 ML VIAL IV ONE (17:13)
[2021-04-26 17:24] LABS: CREATININE 0.6 mg/dL (0.6-1.3); POTASSIUM 4.3 mmol/L (3.5-5.1)
--- NOTE | 2021-04-26 17:31 | NUR ---
PATIENT TAKEN TO OR, V/S WNL AT THIS TIME
[2021-04-26] MEDS ORDERED: ONDANSETRON 4 MG/2 ML VIAL ONE ×2 (19:35→20:19)
[2021-04-26] MEDS ORDERED: HYDROMORPHONE 1 MG/1 ML DISP.SYRIN ONE (20:03)
[2021-04-26] MEDS: CETIRIZINE HCL 10 MG TABLET PO SCH (21:00)
--- NOTE | 2021-04-26 21:00 | NUR ---
RECEIVED PATIENT FROM SURGERY S/P ERCP. PATIENT IS A/O X4. C/O DISCOMFORT IN ABDOMEN. VS WNL. ON O2 2L NC SATING WELL. MID-LINE INTACT AND PATENT, NOTED TO LEFT UPPER ARM. DRESSING NOTED TO RIGHT SIDE OF ABDOMEN, C/D/I. CALL LIGHT IN REACH. ALL NEEDS ATTENDED. WILL CONTINUE TO MONITOR AND ASSESS.
[2021-04-26 21:04] VITALS: BP 147/51
[2021-04-27] MEDS: MORPHINE SULFATE 2 MG/1 ML DISP.SYRIN IV PRN ×4 (03:54→23:50)
[2021-04-27] MEDS: ONDANSETRON 4 MG/2 ML VIAL IV PRN (03:55)
[2021-04-27 04:03] VITALS: BP 129/50
[2021-04-27] MEDS: METRONIDAZOLE 500 MG/NS 100ML 500 MG in PREMIXED 1 EACH IV SCH ×3 (05:55→21:22)
[2021-04-27 06:02] LABS: HEMATOCRIT 25.1 % (31.2-41.9); MEAN CORPUSCULAR HEMOGLOBIN 28.8 uug (24.7-32.8); MEAN CORPUSCULAR VOLUME 85.3 fL (75.5-95.3); PLATELET COUNT (AUTO) 315 K/uL (179-408)
[2021-04-27 06:26] LABS: ALANINE AMINOTRANSFERASE 31 U/L (14-59); ALKALINE PHOSPHATASE 73 U/L (50-136); AMYLASE 89 U/L (25-115); ASPARTATE AMINOTRANSFERASE 18 U/L (15-37); BILIRUBIN,TOTAL 0.4 mg/dL (0.2-1.0); CARBON DIOXIDE 18 mmol/L (21-32); CHLORIDE 112 mmol/L (98-107); CREATININE 0.5 mg/dL (0.6-1.3); GLUCOSE 150 mg/dL (74-106); LIPASE 418 U/L (73-393); TOTAL PROTEIN, SERUM 5.2 g/dL (6.4-8.2); UREA NITROGEN, BLOOD 9 mg/dL (7-18)
--- NOTE | 2021-04-27 06:41 | NUR ---
PATIENT ASLEEP IN BED. SLEPT WELL. IVF INFUSING WELL. NO S/S OF ANY PAIN OR DISCOMFORT. NO RESP. DISTRESS NOTED. DRESSING NOTED TO ABDOMEN, C/D/I. CALL LIGHT IN REACH. ALL NEEDS ATTENDED. WILL CONTINUE TO MONITOR AND ASSESS.
[2021-04-27] MEDS ORDERED: POTASSIUM CHLORIDE 50 ML IV SCH (07:45)
[2021-04-27] MEDS ORDERED: POTASSIUM CHLORIDE 20 MEQ POWDER PACKET PO ONE (07:45)
[2021-04-27] MEDS: PANTOPRAZOLE SODIUM 40 MG VIAL IV SCH ×2 (08:44→21:08)
[2021-04-27] MEDS: DORZOLAMIDE/TIMOLOL OPHT DROP 10 ML BOTTLE EACHEYE SCH ×2 (08:44→21:08)
[2021-04-27] MEDS: IV D5 1/2 NS 1000 ML 1,000 ML IV PRN (09:11)
[2021-04-27] MEDS ORDERED: BISACODYL 10 MG SUPP.RECT RC PRN (09:30)
[2021-04-27] MEDS: POTASSIUM CHLORIDE 10 MEQ, LIDOCAINE-MPF 1% 1 ML in IV DEXTROSE 5% 100 ML IV SCH ×4 (09:47→13:09)
[2021-04-27] MEDS ORDERED: POTASSIUM CHLORIDE 10 MEQ, LIDOCAINE-MPF 1% 1 ML in IV DEXTROSE 5% 100 ML IV SCH (11:00)
[2021-04-27 12:00] VITALS: BP 138/52
[2021-04-27] MEDS: LEVOFLOXACIN/D5W 250 MG in PREMIX 1 EA IV SCH (12:44)
--- NOTE | 2021-04-27 15:42 | NUR ---
patient had x1 episode of passing mucus from rectum. CADENCE wheeler and Dr. Covington with nno.
--- NOTE | 2021-04-27 15:43 | NUR ---
patient requesting to be seen by Dr. Rochelle MD aware.
--- NOTE | 2021-04-27 15:53 | NUR ---
patient with c/o swelling to bilateral legs, elevated extremities.
[2021-04-27 16:00] VITALS: BP 153/75
[2021-04-27] MEDS: CETIRIZINE HCL 10 MG TABLET PO SCH (21:00)
[2021-04-28] MEDS: METRONIDAZOLE 500 MG/NS 100ML 500 MG in PREMIXED 1 EACH IV SCH ×3 (05:35→22:27)
[2021-04-28 06:17] LABS: HEMATOCRIT 23.8 % (31.2-41.9); MEAN CORPUSCULAR HEMOGLOBIN 29.4 uug (24.7-32.8); MEAN CORPUSCULAR VOLUME 84.8 fL (75.5-95.3); PLATELET COUNT (AUTO) 295 K/uL (179-408)
[2021-04-28 06:59] LABS: BILIRUBIN,DIRECT 0.1 mg/dL (0.0-0.2); BILIRUBIN,TOTAL 0.3 mg/dL (0.2-1.0); CREATININE 0.6 mg/dL (0.6-1.3); MAGNESIUM 1.8 mg/dL (1.8-2.4); POTASSIUM 3.2 mmol/L (3.5-5.1)
[2021-04-28 07:10] LABS: PHOSPHOROUS 1.9 mg/dL (2.5-4.9)
--- NOTE | 2021-04-28 07:14 | NUR ---
Patient slept intermittently through out the night. Patient c/o bilateral leg swelling. Wants to speak to MD about leg swelling. MD already aware and will be seeing pt in am. Morphine 1mg given for RUQ abdominal pain, effective. Midline in CHRIS intact and patent. Pt is able to walk to bathroom with assist. No signs of acute distress noted. Pt on full liquid diet. Call lights within reach. Safety measures maintained. Will endorse to am shift.
[2021-04-28 07:37] LABS: BILIRUBIN,DIRECT 0.1 mg/dL (0.0-0.2); BILIRUBIN,TOTAL 0.3 mg/dL (0.2-1.0)
[2021-04-28] MEDS: DORZOLAMIDE/TIMOLOL OPHT DROP 10 ML BOTTLE EACHEYE SCH ×2 (08:49→20:46)
[2021-04-28] MEDS: PANTOPRAZOLE SODIUM 40 MG VIAL IV SCH ×2 (08:49→20:47)
[2021-04-28] MEDS: POTASSIUM CHLORIDE 50 ML IV SCH ×2 (08:50→10:10)
[2021-04-28] MEDS ORDERED: FUROSEMIDE 20 MG/2 ML VIAL IV ONE (09:30)
[2021-04-28] MEDS ORDERED: POTASSIUM CHLORIDE 20 MEQ POWDER PACKET PO ONE (09:30)
[2021-04-28] MEDS: POTASSIUM PHOSPHATE MM 15 MMOL in IV NORMAL SALINE 250 ML IV ONE ×2 (11:00→13:22)
[2021-04-28] MEDS: LEVOFLOXACIN/D5W 250 MG in PREMIX 1 EA IV SCH (11:08)
[2021-04-28] MEDS: FLEET ENEMA 133 ML BOTTLE RC PRN (11:14)
--- NOTE | 2021-04-28 11:34 | NUR ---
Enema administered to patient with Gennaro RN assistance.
[2021-04-28 11:42] VITALS: BP 146/47
--- NOTE | 2021-04-28 13:00 | NUR ---
unable to give IV medication. received the patient midline infiltrated. will continue to monitor.
--- NOTE | 2021-04-28 13:25 | NUR ---
Patient report given to Orin FRANKLIN.
--- NOTE | 2021-04-28 14:00 | NUR ---
Morphine 2mg removed from the Pyxis, wasted 1mg plus 1 mg, no dose was given to the patient. Witnessed by NOEMI Cummings. Pharmacist made aware.
--- NOTE | 2021-04-28 14:30 | NUR ---
received patient from May RN and mid line on left arm removed due to infiltrated
--- NOTE | 2021-04-28 14:30 | NUR ---
report given to NOEMI Murillo for continuity of care.
--- NOTE | 2021-04-28 14:37 | NUR ---
received patient from Orin NOEMI.
--- NOTE | 2021-04-28 15:11 | NUR ---
hold 2pm Flagyl ivp due to mild line is out.
[2021-04-28 16:00] VITALS: BP 122/54
[2021-04-28] MEDS ORDERED: POTASSIUM PHOSPHATE MM 15 MMOL in IV NORMAL SALINE 250 ML IV ONE (17:00)
[2021-04-28] MEDS: MORPHINE SULFATE 2 MG/1 ML DISP.SYRIN IV PRN ×2 (17:23→21:00)
--- NOTE | 2021-04-28 17:54 | NUR ---
RE-INSERTED MILD LINE TO RIGHT ARM BY PICC LINE NURSE,RE-START THE IV AGAIN.
[2021-04-28 20:00] VITALS: BP 133/48
--- NOTE | 2021-04-28 20:15 | NUR ---
Received patient in bed. AAOX4, noted to be very needy. On room air. Ambulatory with minimal assistance. MINE midline patent and intact, infusing potassium phosphate in NS running at 42.5cc/hr. On a KCI bed. Patient denies sob,chest pain or dizziness at this time. Safety precautions initiated. Bed in locked position, call light within reach. Will continue to monitor.
[2021-04-28] MEDS: CETIRIZINE HCL 10 MG TABLET PO SCH ×2 (20:47→20:57)
[2021-04-29] MEDS: diphenhydrAMINE 50 MG/1 ML VIAL IV PRN ×2 (02:55→18:27)
[2021-04-29] MEDS: METRONIDAZOLE 500 MG/NS 100ML 500 MG in PREMIXED 1 EACH IV SCH ×3 (05:31→21:43)
--- NOTE | 2021-04-29 06:04 | NUR ---
Patient slept poorly through the night, very needy. IV access on MINE ML patent and intact, TKO. IV antibiotics tolerated well. Compliant with medication regimen. Complained of having pain and itchiness, PRN medications were given and tolerated well. All needs attended to and met. Safety precautions maintained. Will endorse to day shift.
[2021-04-29 06:09] LABS: HEMATOCRIT 25.2 % (31.2-41.9); MEAN CORPUSCULAR HEMOGLOBIN 29.6 uug (24.7-32.8); MEAN CORPUSCULAR VOLUME 85.3 fL (75.5-95.3); PLATELET COUNT (AUTO) 334 K/uL (179-408)
[2021-04-29 06:22] LABS: CREATININE 0.6 mg/dL (0.6-1.3); MAGNESIUM 1.7 mg/dL (1.8-2.4); POTASSIUM 3.4 mmol/L (3.5-5.1)
[2021-04-29] MEDS ORDERED: FUROSEMIDE 20 MG/2 ML VIAL IV ONE (07:30)
[2021-04-29] MEDS ORDERED: POTASSIUM CHLORIDE 20 MEQ POWDER PACKET PO ONE (07:30)
[2021-04-29 08:00] VITALS: BP 143/68
[2021-04-29] MEDS: MAGNESIUM SULFATE/D5W 100 ML IV SCH ×2 (08:29→09:35)
[2021-04-29] MEDS: PANTOPRAZOLE SODIUM 40 MG VIAL IV SCH ×2 (08:30→20:25)
[2021-04-29] MEDS: DORZOLAMIDE/TIMOLOL OPHT DROP 10 ML BOTTLE EACHEYE SCH ×2 (08:30→20:25)
--- NOTE | 2021-04-29 08:49 | NUR ---
Pt is a/o x 4, magnesium level 1.7, supplementation administered per MD order. No complaint of pain at this time. Pt wishes to see optical advisor, will notify low voltage technician. Comfort measures provided, call light within reach. Will continue to monitor.
[2021-04-29] MEDS ORDERED: POTASSIUM CHLORIDE 20 MEQ TAB.PRT.SR PO ONE (10:15)
[2021-04-29] MEDS: FLEET ENEMA 133 ML BOTTLE RC PRN ×2 (10:56→17:01)
[2021-04-29] MEDS: LEVOFLOXACIN/D5W 250 MG in PREMIX 1 EA IV SCH (12:30)
[2021-04-29] MEDS: MORPHINE SULFATE 2 MG/1 ML DISP.SYRIN IV PRN ×2 (14:12→21:43)
[2021-04-29 15:22] VITALS: BP 149/59
[2021-04-29] MEDS: CEFTRIAXONE 1 G in IV DEXTROSE 5% 50 ML IV SCH (15:51)
--- NOTE | 2021-04-29 18:14 | NUR ---
Pt has developed redness in left groin in the shape of disposable underwear. Removed underwear and notified MD of findings. Placed order for wound care consult. Pt refused to take benadryl at this time. Fleet enema was done today twice during shift. After the first time in the afternoon, loose stool was present in a small amount. After the second time, no stool was present.
[2021-04-29] MEDS ORDERED: SUCCINYLCHOLINE CHLORIDE 200 MG/10 ML VIAL IV ONE (19:00)
[2021-04-29] MEDS ORDERED: PROPOFOL 200 MG/20 ML BOTTLE IV ONE (19:00)
[2021-04-29 20:00] VITALS: BP 147/50
[2021-04-29] MEDS: CETIRIZINE HCL 10 MG TABLET PO SCH ×2 (20:25→21:00)
[2021-04-30 04:00] VITALS: BP 146/56
--- NOTE | 2021-04-30 05:47 | NUR ---
Slept throughout the night. Denies pain or SOB. Pt is passing gas, no bowel movement on this shift. Alert and able to make needs known. Safety maintained. Will endorse to day shift.
[2021-04-30] MEDS: METRONIDAZOLE 500 MG/NS 100ML 500 MG in PREMIXED 1 EACH IV SCH ×3 (06:21→22:23)
[2021-04-30 06:30] LABS: MEAN CORPUSCULAR HEMOGLOBIN 28.7 uug (24.7-32.8); MEAN CORPUSCULAR VOLUME 84.9 fL (75.5-95.3); PLATELET COUNT (AUTO) 395 K/uL (179-408)
[2021-04-30 06:49] LABS: CREATININE 0.6 mg/dL (0.6-1.3); POTASSIUM 3.2 mmol/L (3.5-5.1)
[2021-04-30] MEDS ORDERED: POTASSIUM CHLORIDE 20 MEQ TAB.PRT.SR PO ONE ×2 (09:00→09:45)
[2021-04-30] MEDS: PANTOPRAZOLE SODIUM 40 MG VIAL IV SCH ×2 (09:59→20:44)
[2021-04-30] MEDS: DORZOLAMIDE/TIMOLOL OPHT DROP 10 ML BOTTLE EACHEYE SCH ×2 (10:00→22:39)
[2021-04-30] MEDS: POTASSIUM CHLORIDE 10 MEQ, LIDOCAINE-MPF 1% 1 ML in IV DEXTROSE 5% 100 ML IV SCH ×4 (10:00→13:25)
[2021-04-30 11:08] VITALS: BP 131/49
[2021-04-30] MEDS: MORPHINE SULFATE 2 MG/1 ML DISP.SYRIN IV PRN ×2 (11:13→20:55)
--- NOTE | 2021-04-30 12:00 | NUR ---
Pt going for EGD with stent removal tomorrow morning at 0900. Pt refuses to sign consent until surgeon speaks to patient.
--- NOTE | 2021-04-30 13:29 | NUR ---
WOUND CARE CONSULT: PT SEEN FOR RASH/SWELLING IN LEFT GROIN BUT IT HAD RESOLVED. WILL SEE PT PRN.
[2021-04-30] MEDS: FLEET ENEMA 133 ML BOTTLE RC PRN (14:52)
[2021-04-30] MEDS ORDERED: methylPREDNISolone 1 PACK TAB.DS.PK [4MG TAB] PO ONE (15:45)
[2021-04-30] MEDS ORDERED: methylPREDNISolone 4 MG TABLET (DAY#1) PO ONE (16:00)
[2021-04-30 16:10] VITALS: BP 138/46
[2021-04-30] MEDS: CEFTRIAXONE 1 G in IV DEXTROSE 5% 50 ML IV SCH (16:16)
--- NOTE | 2021-04-30 17:00 | NUR ---
Administered fleet enema. Pt had a big BM soft and brown. Abdomen is softer compared to prior assessment. Pt happy with results. notified.
[2021-04-30] MEDS ORDERED: methylPREDNISolone 4 MG TABLET (DAY#1, BEFORE DINNER) PO ONE (17:30)
--- NOTE | 2021-04-30 18:24 | NUR ---
left Message for Dr. Griffiths about pt concerns and refusal to sign procedure consent, no response thus far. Attempted to call several times. Notified CADENCE Hameed.
[2021-04-30] MEDS: diphenhydrAMINE 50 MG/1 ML VIAL IV PRN (18:39)
--- NOTE | 2021-04-30 19:35 | NUR ---
Patient alert oriented, continent of bowel and bladder, no complain of pain at this time. remind patient that she needs to be npo after midnight. cont to monitor.
[2021-04-30 20:37] VITALS: BP 135/43
[2021-04-30] MEDS: CETIRIZINE HCL 10 MG TABLET PO SCH (20:50)
[2021-04-30] MEDS: methylPREDNISolone 4 MG TABLET (DAY#1, HS) PO ONE ×2 (22:20→22:21)
--- NOTE | 2021-04-30 22:44 | NUR ---
Patient refused medication zyrtec and predinisolone 8mg, explained the risk and benefit of the medication but refuse.
[2021-05-01 04:43] VITALS: BP 128/49
--- NOTE | 2021-05-01 05:00 | NUR ---
Patient asleep but arousable, no complain of pain at this time, patient assisted with toileting, cont on ABX for Pna with no adverse reaction noted, kept comfortable.
[2021-05-01 06:11] LABS: HEMATOCRIT 25.6 % (31.2-41.9); MEAN CORPUSCULAR HEMOGLOBIN 29.2 uug (24.7-32.8); PLATELET COUNT (AUTO) 414 K/uL (179-408)
[2021-05-01 06:38] LABS: CREATININE 0.6 mg/dL (0.6-1.3); MAGNESIUM 2.1 mg/dL (1.8-2.4); POTASSIUM 3.9 mmol/L (3.5-5.1)
[2021-05-01] MEDS ORDERED: methylPREDNISolone 4 MG TABLET (DAY#2, ACB) PO ONE (07:30)
--- NOTE | 2021-05-01 07:30 | NUR ---
Received patient is bed awake alert and oriented times 4. No sign of distress noted at this time. Patient is currently NPO for surgical procedure scheduled at 0900. Safety precautions implemented. Will continue to monitor.
[2021-05-01] MEDS: PANTOPRAZOLE SODIUM 40 MG VIAL IV SCH ×2 (08:10→21:31)
[2021-05-01] MEDS: DORZOLAMIDE/TIMOLOL OPHT DROP 10 ML BOTTLE EACHEYE SCH ×2 (08:31→21:32)
[2021-05-01 09:01] LABS: *BILIRUBIN,URIN NEGATIVE (NEGATIVE); *BLOOD, URINE NEGATIVE (NEGATIVE); *CLARITY,URINE CLEAR (CLEAR); *COLOR,URINE YELLOW (YELLOW); *KETONES,URINE NEGATIVE (NEGATIVE); *UROBILINOGEN,URINE 0.2 E.U./dl (NORMAL); LEUKOCYTE ESTERASE ,URINE NEGATIVE (NEGATIVE); NITRITE, URINE NEGATIVE (NEGATIVE); UGLUCOSE NEGATIVE (NEGATIVE)
--- NOTE | 2021-05-01 09:15 | NUR ---
Patient is off the floor.
[2021-05-01] MEDS ORDERED: methylPREDNISolone 4 MG TABLET (DAY#2, PC LUNCH) PO ONE (12:30)
[2021-05-01] MEDS: FLUCONAZOLE 200 MG TABLET PO SCH (12:50)
[2021-05-01 13:00] VITALS: BP 165/66
[2021-05-01] MEDS: MORPHINE SULFATE 2 MG/1 ML DISP.SYRIN IV PRN ×2 (13:45→21:31)
[2021-05-01] MEDS: CEFTRIAXONE 1 G in IV DEXTROSE 5% 50 ML IV SCH (15:11)
[2021-05-01 17:02] VITALS: BP 154/59
[2021-05-01] MEDS ORDERED: methylPREDNISolone 4 MG TABLET (DAY#2, PC DINNER) PO ONE (17:30)
--- NOTE | 2021-05-01 18:33 | NUR ---
Patient complains that she has a hematoma in the right upper arm, upon assessment it has a slight bruising but no hematoma. Made charge nurse and asked her to assess arm. Will continue to monitor.
--- NOTE | 2021-05-01 18:52 | NUR ---
Patient left sitting up in chair. No sign of distress noted. Gave medications as ordered. Safety measure are in place. Will endorse to the new nurse
[2021-05-01 20:19] VITALS: BP 143/55
[2021-05-01] MEDS: CETIRIZINE HCL 10 MG TABLET PO SCH (21:00)
[2021-05-01] MEDS ORDERED: methylPREDNISolone 4 MG TABLET (DAY#2, HS) PO ONE (21:00)
--- NOTE | 2021-05-01 21:32 | NUR ---
Patient seated at the chair, alert oriented, no sob no chest pain, request Morphine for abdominal pain 10/23, ambulate with LIVESTOCK COUNTER in hallways x2 tolerate well, will medicate as ordered. cont to monitor.
[2021-05-02 04:45] VITALS: BP 137/52
--- NOTE | 2021-05-02 05:08 | NUR ---
Patient asleep but arousable, no sob no chest pain, patient complain of mild abdominal pain, but refused to take pain meds at this time. Patient abdomen has two site with staple, no redness, no drainage, site clean, and also small incision with thread, covered with dry dressing. Patient passing gas, used IS while she awake, tolerate well, and has a mild peristalsis on lower abdomen. cont to monitor.
[2021-05-02 06:36] LABS: MEAN CORPUSCULAR HEMOGLOBIN 28.6 uug (24.7-32.8); MEAN CORPUSCULAR VOLUME 86.7 fL (75.5-95.3); PLATELET COUNT (AUTO) 430 K/uL (179-408)
[2021-05-02 06:50] LABS: CREATININE 0.6 mg/dL (0.6-1.3); MAGNESIUM 1.9 mg/dL (1.8-2.4); PHOSPHOROUS 2.9 mg/dL (2.5-4.9)
[2021-05-02] MEDS ORDERED: methylPREDNISolone 4 MG TABLET (DAY#3, ACB) PO ONE (07:30)
[2021-05-02] MEDS ORDERED: FLUCONAZOLE 200 MG TABLET PO SCH (09:00)
[2021-05-02] MEDS: HYDROCODONE/APAP 5-325MG TABLET PO PRN (09:04)
[2021-05-02] MEDS: PANTOPRAZOLE SODIUM 40 MG VIAL IV SCH ×2 (09:05→20:58)
[2021-05-02] MEDS: FLUCONAZOLE 200 MG TABLET PO SCH (09:08)
[2021-05-02] MEDS: DORZOLAMIDE/TIMOLOL OPHT DROP 10 ML BOTTLE EACHEYE SCH ×2 (09:10→20:58)
[2021-05-02] MEDS: MORPHINE SULFATE 2 MG/1 ML DISP.SYRIN IV PRN ×2 (12:26→20:58)
[2021-05-02] MEDS: ENSURE ENLIVE (VAN) 240 ML LIQUID PO SCH ×2 (12:27→17:19)
[2021-05-02] MEDS ORDERED: methylPREDNISolone 4 MG TABLET (DAY#3, PC LUNCH) PO ONE (12:30)
[2021-05-02 15:16] VITALS: BP 154/44
[2021-05-02] MEDS ORDERED: methylPREDNISolone 4 MG TABLET (DAY#3, PC DINNER) PO ONE (17:30)
[2021-05-02 20:19] VITALS: BP 157/47
[2021-05-02] MEDS: CETIRIZINE HCL 10 MG TABLET PO SCH (20:58)
[2021-05-02] MEDS ORDERED: methylPREDNISolone 4 MG TABLET (DAY#3, HS) PO ONE (21:00)
[2021-05-03 04:36] VITALS: BP 139/63
--- NOTE | 2021-05-03 06:00 | NUR ---
Patient slept well. Assisted to bathroom 3 times and using bed grissom in between. Has one small BM. Dressing to right side abdomen changed due to previous dressing dislodged, site is clean and dry, small site with sutures and large site with multiple shawn in place. C/O severe abd pain times 1, Morphine PRN provided. All needs attended, call light within reach.
[2021-05-03 06:03] LABS: HEMATOCRIT 27.1 % (31.2-41.9); MEAN CORPUSCULAR VOLUME 85.1 fL (75.5-95.3); PLATELET COUNT (AUTO) 445 K/uL (179-408)
[2021-05-03 06:17] LABS: ALANINE AMINOTRANSFERASE 19 U/L (14-59); ALKALINE PHOSPHATASE 64 U/L (50-136); ASPARTATE AMINOTRANSFERASE 13 U/L (15-37); BILIRUBIN,DIRECT < 0.1 mg/dL (0.0-0.2); BILIRUBIN,TOTAL 0.2 mg/dL (0.2-1.0); CARBON DIOXIDE 25 mmol/L (21-32); CHLORIDE 105 mmol/L (98-107); CREATININE 0.5 mg/dL (0.6-1.3); GLUCOSE 150 mg/dL (74-106); MAGNESIUM 1.9 mg/dL (1.8-2.4); PHOSPHOROUS 2.1 mg/dL (2.5-4.9); POTASSIUM 3.7 mmol/L (3.5-5.1); TOTAL PROTEIN, SERUM 5.8 g/dL (6.4-8.2); UREA NITROGEN, BLOOD 8 mg/dL (7-18)
[2021-05-03] MEDS ORDERED: methylPREDNISolone 4 MG TABLET (DAY#4, ACB) PO ONE (07:30)
[2021-05-03] MEDS: FLUCONAZOLE 200 MG TABLET PO SCH (09:09)
[2021-05-03] MEDS: DORZOLAMIDE/TIMOLOL OPHT DROP 10 ML BOTTLE EACHEYE SCH ×2 (09:09→20:48)
[2021-05-03] MEDS: ENSURE ENLIVE (VAN) 240 ML LIQUID PO SCH ×3 (09:15→17:00)
[2021-05-03] MEDS ORDERED: LIDOCAINE-MPF 2% 5 ML VIAL IJ ONE (09:38)
[2021-05-03] MEDS ORDERED: PROPOFOL 200 MG/20 ML BOTTLE IV ONE (09:38)
[2021-05-03] MEDS: PANTOPRAZOLE SODIUM 40 MG VIAL IV SCH ×2 (10:20→20:49)
[2021-05-03] MEDS: MORPHINE SULFATE 2 MG/1 ML DISP.SYRIN IV PRN ×2 (10:53→20:48)
--- NOTE | 2021-05-03 11:22 | NUR ---
Med. Surg: Refuse-Staple Removal: Patient is awake and A/Ox4, patient refused for staff to remove every other staple per MD order, stated that it was too painful right now, charge nurse informed, continue to monitor for safety, continue with treatment plan.
[2021-05-03 11:47] VITALS: BP 115/65
[2021-05-03] MEDS ORDERED: methylPREDNISolone 4 MG TABLET (DAY#4, PC LUNCH) PO ONE (12:30)
[2021-05-03 16:00] VITALS: BP 161/51
[2021-05-03] MEDS ORDERED: NEUTRA PHOS PACKET PO ONE (16:00)
--- NOTE | 2021-05-03 17:22 | NUR ---
Med. Surg: Impaired Mobility: Patient is awake and cooperative with nursing care, ambulatory with fww and supervision, ambulated around the unit four times with staff, needs assistance with ADL's, on fall precautions, continue to monitor for safety, slightly unsteady gait, but following staff directions, continue with treatment plan.
[2021-05-03 20:03] VITALS: BP 157/52
[2021-05-03] MEDS: CETIRIZINE HCL 10 MG TABLET PO SCH (20:49)
[2021-05-03] MEDS ORDERED: methylPREDNISolone 4 MG TABLET (DAY#4, HS) PO ONE (21:00)
--- NOTE | 2021-05-04 03:30 | NUR ---
Noted with one episode of severe cramping to abdomen, pain to right and middle abd, bowel sounds active, abd soft and non distended. Incision sites free of s/s of infection. Morphine PRN provided, with some help. Noted with gas, frequent burping. Walked patient around unit using walker and able to expel more gas. Patient showed relief post walk.
[2021-05-04] MEDS: MORPHINE SULFATE 2 MG/1 ML DISP.SYRIN IV PRN ×2 (03:31→14:01)
[2021-05-04 04:03] VITALS: BP 158/64
--- NOTE | 2021-05-04 06:18 | NUR ---
Patient still noted with pitting edema to both feet and blood pressure with SBP 150's. Patient is asymptomatic, no dizziness, N/V. patient requesting to see case coordinator/ social welfare clerk for caregiver resources when discharged. Will endorse to day shift.
[2021-05-04 06:28] LABS: HEMATOCRIT 25.5 % (31.2-41.9); MEAN CORPUSCULAR HEMOGLOBIN 28.7 uug (24.7-32.8); MEAN CORPUSCULAR VOLUME 84.3 fL (75.5-95.3); PLATELET COUNT (AUTO) 437 K/uL (179-408)
[2021-05-04 06:37] LABS: CREATININE 0.6 mg/dL (0.6-1.3); MAGNESIUM 1.9 mg/dL (1.8-2.4); POTASSIUM 3.7 mmol/L (3.5-5.1)
[2021-05-04] MEDS ORDERED: methylPREDNISolone 4 MG TABLET (DAY#5, ACB) PO ONE (07:30)
[2021-05-04 08:00] VITALS: BP 159/59
[2021-05-04] MEDS ORDERED: FUROSEMIDE 20 MG/2 ML VIAL IV ONE (08:30)
[2021-05-04] MEDS ORDERED: LOSARTAN POTASSIUM 25 MG TABLET PO SCH (09:00)
[2021-05-04] MEDS: PANTOPRAZOLE SODIUM 40 MG VIAL IV SCH (09:20)
[2021-05-04] MEDS: DORZOLAMIDE/TIMOLOL OPHT DROP 10 ML BOTTLE EACHEYE SCH (09:20)
[2021-05-04] MEDS: FLUCONAZOLE 200 MG TABLET PO SCH (09:20)
[2021-05-04] MEDS: ENSURE ENLIVE (VAN) 240 ML LIQUID PO SCH ×2 (09:21→13:03)
--- NOTE | 2021-05-04 11:00 | NUR ---
Plan is to discharge pt home with assisted home health. CM on pt's case and has spoken to pt and family. Pt refuses to leave, states that she is going to stay until tomorrow morning. CM discussed insurance not covering stay anymore and if she chooses to stay it will be pt responsibility. Pt has had BM, soft brown. Appetite in place and tolerated diet well. Vitals controlled and within normal limits. Pt stated that removing shawn hurt so she did not want to have them removed. Will continue to monitor pt.
[2021-05-04 11:47] VITALS: BP 152/65
--- NOTE | 2021-05-04 14:05 | NUR ---
Pt was complaining of abdominal pain, assessed. Pt's abdomen is non distended, no signs of infection visible. [place] and incision site clean. Administered prn morphine. Daughter was concerned about discharge while pt is receiving morphine. Explained that we will reassess pt and monitor vitals prior to her discharge and discharge was planned for [address] by ambulance. Provided senior case manager with daughter's number for him to communicate discharge plans.
[2021-05-04] MEDS ORDERED: LOSA25TA27 PO (14:52)
[2021-05-04] MEDS ORDERED: FLUC200T PO (14:52)
[2021-05-04] MEDS ORDERED: METH4TAB PO ×2 (14:52)
[2021-05-04] MEDS ORDERED: HYDR-3972 PO ×2 (14:52→16:10)
[2021-05-04 16:00] VITALS: BP 105/50
[2021-05-04 17:25] VITALS: BP 110/57
--- NOTE | 2021-05-04 17:25 | NUR ---
Pt is being discharge. She is going home with Ambulance transportation. dump worker consult per CM set up for home visit along with physical therapy and home health. All information explained to pt by CM. Discharge education, diagnosis education and after care provided for pt. Provided all medication directions and doctors information for Dr. Covington, Dr. Griffiths, and Dr. Hoyt. Their phone numbers along with office addresses are written for patient in her discharge papers. Provided pt with orthopedic shoes, all personal belongings at hand and signed for. IV removed. Wound pictures taken. Previous groin redness picture that was in chart has been resolved. Pt refused to be photographed again in groin area. Pt spoke with daughter again after being told she was going home. Daughter is aware. Pt is alert and oriented times 4, no complaint of pain at this time. Pt used front wheel walker to ambulate to restroom prior to leaving. No dizziness present at time of ambulating. Vitals : 98.2 Temp. BP 110/57 HR 96, saturating 97% on room air, rr 18. Provided pt with additional surgical dressing, Ensure to take home per request, apple juice and apple sauce. Pt ambulated to [facility]. Personal belongings have been bagged and placed with pt.
[2021-05-04] MEDS ORDERED: methylPREDNISolone 4 MG TABLET (DAY#5, HS) PO ONE (21:00)
[2021-05-05] MEDS ORDERED: methylPREDNISolone 4 MG TABLET (DAY#6, ACB) PO ONE (07:30)
== END 2021-05-04 17:20 | disposition home health service (06) | DRG 417 ==
LOC: ER 02:07 → MEDSURG3 08:10 → TELE-TD3 04-21 20:39 → TELE3 04-22 10:26 → MEDSURG3 04-23 11:13
PROVIDERS: ADMIT Registered Nurse; ATTEND Family Medicine
PROC: 0FT44ZZ Resection of Gallbladder, Percutaneous Endoscopic Approach (ICD-10-PCS; principal; 2021-04-21)
PROC: 0FN04ZZ Release Liver, Percutaneous Endoscopic Approach (ICD-10-PCS; 2021-04-21)
PROC: 0W3P0ZZ Control Bleeding in Gastrointestinal Tract, Open Approach (ICD-10-PCS; 2021-04-21)
PROC: 0F798DZ Dilation of Common Bile Duct with Intraluminal Device, Via Natural or Artificial Opening Endoscopic (ICD-10-PCS; 2021-04-26)
PROC: 0F7D8DZ Dilation of Pancreatic Duct with Intraluminal Device, Via Natural or Artificial Opening Endoscopic (ICD-10-PCS; 2021-04-26)
PROC: 0DJ08ZZ Inspection of Upper Intestinal Tract, Via Natural or Artificial Opening Endoscopic (ICD-10-PCS; 2021-05-01)
DX: K85.10 Biliary acute pancreatitis without necrosis or infection (principal); J18.9 Pneumonia, unspecified organism; E43 Unspecified severe protein-calorie malnutrition; J44.0 Chronic obstructive pulmonary disease with (acute) lower respiratory infection; Z68.1 Body mass index [BMI] 19.9 or less, adult; S36.13XA Injury of bile duct, initial encounter; R18.8 Other ascites; B37.81 Candidal esophagitis; I50.32 Chronic diastolic (congestive) heart failure; K80.64 Calculus of gallbladder and bile duct with chronic cholecystitis without obstruction; K56.7 Ileus, unspecified; A04.9 Bacterial intestinal infection, unspecified; E87.6 Hypokalemia; D69.6 Thrombocytopenia, unspecified; K66.0 Peritoneal adhesions (postprocedural) (postinfection); X58.XXXA Exposure to other specified factors, initial encounter; Y92.234 Operating room of hospital as the place of occurrence of the external cause; D64.9 Anemia, unspecified; M72.2 Plantar fascial fibromatosis; M95.8 Other specified acquired deformities of musculoskeletal system; S42.021S Displaced fracture of shaft of right clavicle, sequela; X58.XXXS Exposure to other specified factors, sequela; K29.70 Gastritis, unspecified, without bleeding; R19.5 Other fecal abnormalities; K21.00 Gastro-esophageal reflux disease with esophagitis, without bleeding; K44.9 Diaphragmatic hernia without obstruction or gangrene; Z80.41 Family history of malignant neoplasm of ovary; Z87.891 Personal history of nicotine dependence; Z88.0 Allergy status to penicillin; Z20.822 Contact with and (suspected) exposure to COVID-19; E83.51 Hypocalcemia; L27.0 Generalized skin eruption due to drugs and medicaments taken internally; T36.0X5A Adverse effect of penicillins, initial encounter; Y92.230 Patient room in hospital as the place of occurrence of the external cause; E83.42 Hypomagnesemia; E78.5 Hyperlipidemia, unspecified; Z79.899 Other long term (current) drug therapy; D63.8 Anemia in other chronic diseases classified elsewhere
CPT/HCPCS: 36415; 36600; 43264; 71045; 73630; 74018; 74181; 78445; 82378; 83615; 83690; 83735; 84100; 84443; 84484; 85025; 85730; 86140; 86480; 86850; 86900; 86901; 93005; 93307; 97161; A4663; A6209; A9537; C1769; C1876; C2625; C9113; G0378; J0330; J0696; J1100; J1170; J1200; J1940; J1956; J2001; J2250; J2270; J2405; J2543; J2765; J3010; J3475; J3480; J3490; J7040; J7042; J7120; J7509; Q9966; Q9967